=== PATIENT | female | born 1995 | race Caucasian/White ===

== ENCOUNTER → 2020-08-04 | Outpatient (REF) | payer OTHER | LOC: M PLALAB 11:23 | PROVIDERS: ATTEND Obstetrics & Gynecology | DX: Z34.91 Encounter for supervision of normal pregnancy, unspecified, first trimester (principal) ==

== ENCOUNTER → 2020-09-08 | Outpatient (CLI) | payer OTHER | LOC: M LABSMTC 11:36 | PROVIDERS: ATTEND Family Medicine | DX: Z20.828 Contact with and (suspected) exposure to other viral communicable diseases (principal) ==

== ENCOUNTER → 2020-09-29 | Outpatient (CLI) | payer OTHER ==
[2020-09-29 18:25] LABS: HEMATOCRIT 39.5 % (36.0-47.0); HEMOGLOBIN 13.4 g/dl (12.0-15.5); MEAN CORPUSCULAR HEMOGLOBIN 32.6 pg (27.0-33.0); MEAN CORPUSCULAR HGB CONC 33.9 g/dl (32.0-36.5); MEAN CORPUSCULAR VOLUME 96.1 fl (80.0-96.0); PLATELET COUNT, AUTOMATED 289 10^3/uL (150-450); RED BLOOD COUNT 4.11 10^6/uL (4.00-5.40); WHITE BLOOD COUNT 12.8 10^3/uL (4.0-10.0)
[2020-09-29 19:33] LABS: HEPATITIS C VIRUS ABY INDEX < 0.0 INDEX (<0.8); HIV 1&2 SCREEN CENTAUR NEGATIVE (NEGATIVE)
== END ==
LOC: M WHC 15:22
PROVIDERS: ATTEND Obstetrics & Gynecology
DX: Z3A.14 14 weeks gestation of pregnancy (principal)

== ENCOUNTER → 2020-10-30 | Outpatient (CLI) | payer OTHER ==
--- NOTE | 2020-10-31 08:42 | REP ---
INDICATION: ANATOMY COMPARISON: None. TECHNIQUE: Transabdominal obstetrical ultrasound with color Doppler evaluation. FINDINGS: Examination demonstrates a single live intrauterine in cephalic presentation. motion is identified by technologist. Placenta is noted posterior and grade 1 without evidence for placenta previa or abruption. Amniotic fluid volume is normal. Cervix measures 3.1 cm in length and appears closed.. Gestational age by current measurements 20 weeks 3 days with DORITA 03/16/2021. FHR equals 149 beats per minute. BPD: 4.8 cm 20 weeks 4 days HC: 17.9 cm 20 weeks 2 days AC: 15.3 cm 20 weeks 4 days FL: 3.1 cm 19 weeks 5 days HL: 3.2 cm 20 weeks 6 days HC/AC: 1.17 Estimated weight 337 grams (90thpercentile for 19 weeks 2 days gestational age based on DORITA). Anatomical assessment demonstrates normal structures including cranium, choroid plexus, cavum, cerebellum/posterior fossa, facial features, lungs, four-chamber heart/ventricular outflow tracts, diaphragm, stomach, cord insertion/three-vessel cord, kidneys/bladder, spine, and extremities. IMPRESSION: Single live intrauterine in cephalic presentation demonstrating appropriate interval growth. Anatomical assessment is complete and normal. <Electronically signed by Damian Huffman > 10/30/20 [id number]
== END ==
LOC: M WHC 14:34
PROVIDERS: ATTEND Obstetrics & Gynecology
DX: Z36.3 Encounter for antenatal screening for malformations (principal); Z3A.20 20 weeks gestation of pregnancy

== ENCOUNTER → 2020-11-11 | Outpatient (REF) | payer OTHER | LOC: M SFHCWAGY 17:26 | PROVIDERS: ATTEND Advanced Practice Midwife | DX: R35.0 Frequency of micturition (principal) ==

== ENCOUNTER → 2020-12-23 | Outpatient (CLI) | payer OTHER ==
--- NOTE | 2020-12-23 11:45 | REP ---
INDICATION: FLANK PAIN COMPARISON: None TECHNIQUE: Real time funez and color B-mode scale ultrasound examination using curved array transducer. FINDINGS: Kidneys are normal in contour, size, echogenicity, vascularity and reniform shape. No hydronephrosis, nephrolithiasis, cystic or renal mass lesion. Right kidney measures 11.6 x 5.1 x 3.9 cm. Left kidney measures 11.5 x 5.3 x 4.1 cm. Bladder is normal in appearance. IMPRESSION: 1. Normal renal ultrasound. <Electronically signed by Damian Huffman > 12/23/20 0651
== END ==
LOC: M RAD 11:05
PROVIDERS: ATTEND Advanced Practice Midwife
DX: R10.9 Unspecified abdominal pain (principal)

== ENCOUNTER → 2020-12-23 | Outpatient (REF) | payer OTHER ==
[2020-12-23 18:28] LABS: APPEARANCE, URINE HAZY (CLEAR); BACTERIA, URINE AUTO NEGATIVE (NEGATIVE); BILIRUBIN, URINE AUTO NEGATIVE (NEGATIVE); BLOOD, URINE BLOOD NEGATIVE (NEGATIVE); COLOR, URINE YELLOW (YELLOW); GLUCOSE, URINE (UA) AUTO NEGATIVE (NEGATIVE); KETONE, URINE AUTO NEGATIVE (NEGATIVE); LEUKOCYTE ESTERASE, URINE AUTO NEGATIVE (NEGATIVE); MUCUS, URINE SMALL (NEGATIVE); NITRITE, URINE AUTO NEGATIVE (NEGATIVE); PROTEIN, URINE AUTO 1+ mg/dL (NEGATIVE); RBC, URINE AUTO 0 /HPF (0-3); SPECIFIC GRAVITY URINE AUTO 1.019 (1.002-1.035); SQUAMOUS EPITHELIAL CELL UR AU 5 /HPF (0-6); WBC, URINE AUTO 2 /HPF (0-3)
== END ==
LOC: M SFHCWAGY 16:48
PROVIDERS: ATTEND Advanced Practice Midwife
DX: R10.9 Unspecified abdominal pain (principal)

== ENCOUNTER → 2021-01-21 | Outpatient (REF) | payer OTHER ==
[2021-01-21 15:38] LABS: HEMOGLOBIN 10.9 g/dl (12.0-15.5); MEAN CORPUSCULAR HEMOGLOBIN 29.1 pg (27.0-33.0); MEAN CORPUSCULAR HGB CONC 31.1 g/dl (32.0-36.5); MEAN CORPUSCULAR VOLUME 93.3 fl (80.0-96.0); PLATELET COUNT, AUTOMATED 224 10^3/uL (150-450); RED BLOOD COUNT 3.75 10^6/uL (4.00-5.40); WHITE BLOOD COUNT 10.5 10^3/uL (4.0-10.0)
== END ==
LOC: M PLALAB 12:34
PROVIDERS: ATTEND Advanced Practice Midwife
DX: Z36.89 Encounter for other specified antenatal screening (principal); Z3A.24 24 weeks gestation of pregnancy

== ENCOUNTER → 2021-02-04 | Outpatient (CLI) | payer OTHER | LOC: M WHC 16:11 | PROVIDERS: ATTEND Obstetrics & Gynecology | DX: O26.849 Uterine size-date discrepancy, unspecified trimester (principal) ==

== ENCOUNTER → 2021-02-05 | Outpatient (CLI) | payer OTHER ==
--- NOTE | 2021-02-06 07:16 | REP ---
INDICATION: UTERINE SIZE DISCREPANCY,GROWTH COMPARISON: 10/30/2020 TECHNIQUE: Transabdominal obstetrical ultrasound with color Doppler evaluation. FINDINGS: Examination demonstrates a single live intrauterine in cephalic presentation. motion is identified by technologist. Placenta is noted posterior grade 2 and grade without evidence for placenta previa or abruption. Amniotic fluid volume is normal. Cervix measures 3.2 cm in length and appears closed.. Gestational age by LMP and 1st U/S 33 weeks 2 days with DORITA 03/24/2021. Gestational age by current measurements 33 weeks 3 days with DORITA 03/23/2021. FHR equals 149 beats per minute. Estimated weight 2100 grams (34thpercentile). JUAN: 13.8 cm (8.2-24.6) Limited anatomical assessment demonstrates a 9 x 7 x 7 mm cyst adjacent to the left kidney which may warrant evaluation. IMPRESSION: Single live intrauterine in cephalic presentation demonstrating appropriate estimated weight and growth. Small cyst adjacent to the left kidney warrants ultrasound evaluation. <Electronically signed by Damian Huffman > 02/06/21 0738
== END ==
LOC: M WHC 12:09
PROVIDERS: ATTEND Obstetrics & Gynecology
DX: O26.843 Uterine size-date discrepancy, third trimester (principal)

== ENCOUNTER 2021-02-09 21:46 | Outpatient (CLI) | payer OTHER ==
[~2021-02-09] VITALS: Ht 172.7 cm; Wt 56.6 kg
[2021-02-09 22:08] VITALS: BP 102/65
--- NOTE | 2021-02-09 22:28 | IPNPDOC ---
Text Note Date of Service The patient was seen on 02/09/21. NOTE Subjective: Tana is a 25-year-old female who is a with and DORITA of 03/24/21 based of of LMP and consistent with first trimester ultrasound. Her has been complicated by depression and anxiety. She initiated care in her first trimester with [facility]. She presents to L&D after c/o her son jumping from the stairs into her arms and hitting her abdomen. Patient offered to come in to be evaluated at the time if she was concerned. She did decide to come in after having 4 movements in 1 hour and cramping. She reports having cramping over the last few weeks. She denies vaginal bleeding. She reports increased discharge but denies any gushes, soaking through underwear, no vaginal irritation, no vaginal itching, no vaginal odor. Since being in department she reports active movement. Objective: VS, ultrasound and labs: see below. FHR: 140, moderate variability, positive accelerations, no decelerations. TOCO: contractions 2 to 20 minutes-irregular General: Does not appear to be in any distress. Respiratory: Regular rate with no use of accessory muscles. Abdomen: soft and non-tender to touch Assessment: IUP at 33.6 weeks gestation, hit in abdomen, no placental abruption Plan: -continuous EFM -CBC, KB, fibrinogen ordered -clear liquid diet -Ultrasound ordered to evaluate placenta. No major changes in CBC since 01/21/21. Fibrinogen is normal. KB is positive at 0.0045. Ultrasound done showing no abruption. Patient discharged to home with precautions. Next appointment is in 1.5 weeks. Reviewed access to care, kick count, labor signs and danger signs to report. VS,Fishbone, I+O VS, Fishbone, I+O Vital Signs Label Value Date Time Patient Temperature 98.0 degrees F 02/09/212207 Pulse 88 02/09/212207 Respiratory Rate 18 bpm 02/09/212207 Blood Pressure Assessment 102/65 (77) 02/09/212207 Source Automatic Cuff (NIBP) Item Value Date Time White Blood Count 13.6 10^3/uL H 02/09/212224 Red Blood Count 3.88 10^6/uL L 4/19/21 2225 Hemoglobin 10.8 g/dl L 02/09/212224 Hematocrit 34.5 % L 02/09/212224 Mean Corpuscular Volume 88.9 fl 02/09/212224 Mean Corpuscular Hemoglobin 27.8 pg 02/09/212224 Mean Corpuscular Hemoglobin Concent 31.3 g/dl L 02/09/212224 Red Cell Distribution Width 13.3 % 02/09/212224 Platelet Count 236 10^3/uL 02/09/212224 Item Value Date Time Fibrinogen 302 MG/DL 02/09/212224 Result Comment: /Adult Volume of Vials of Rhogam RBC Ratio FMH Indicated 0.0000-0.0045 up to 15 mL 1 0.0046-0.0090 15-30 mL 2 0.0091-0.0135 30-45 mL 3 0.0136-0.0180 45-60 mL 4 0.0181-0.0225 60-75 mL 5 For each ratio interval of 0.0045, one additional vial of Rhogam is indicated. NAME: TANA CELIS DATE OF : 1995 BUSINESS NUMBER: [id number] AGE: 25 SEX: F REPORT #: [id number] ROOM: [facility] TECHNOLOGIST: [facility] DOCTOR: BRENTON CROWDER CNM Ordered for Date&Time: 02/10/2121 cc: [~ rep ct ivnm] Service Date&Time: 02/10/21 0153 EXAMINATION REQUESTED: Obs. Limited, JUAN US REASON FOR PATIENT VISIT: HIT IN THE ABDOMAN REASON FOR EXAMINATION: abdominal trauma-evaluate placenta PROCEDURE INFORMATION: Exam: US , Limited Exam date and time: 02/10/2021 1:53 AM Age: 25 years old Clinical indication: Injury or trauma; Fall; Blunt trauma; Right lower quadrant; Injury date: 02/09/21; Injury details: Attempted to catch 3 yr old son who decided to jump down the stairs and she fell with him landing on her stomach; ; Additional info: Abdominal trauma-evaluate placenta TECHNIQUE: Imaging protocol: Real-time ultrasound of the maternal uterus with image documentation. Exam focused on the clinical indication. COMPARISON: OBS LIMITED US 02/05/2021 12:21 PM FINDINGS: Gestation: Single living intrauterine gestation in cephalic position. Placenta: Posterior right lateral placenta. No placenta previa or abruption. Amniotic fluid index: 8.1 cm. ANATOMICAL SURVEY: Umbilical cord: Three-vessel umbilical cord. Resistive index is 0.5 with SD ratio of 2.1. The umbilical cord overlaps the posterior neck. MATERNAL: Cervix: Cervix is closed measuring 3.4 cm. No funneling is seen. IMPRESSION: 1. Single living intrauterine gestation in cephalic position. 2. heart rate is 173 bpm. motion may affect the measured heart rate. 3. Umbilical cord overlies the posterior neck. This does not appear to extend anterior to the neck but follow-up to exclude nuchal cord is recommended. Electronically signed by: Minh Leach On 02/10/2021 03:31:59 AM BRENTON CROWDER CNM Feb 09, 2021 22:28
[2021-02-09 22:36] LABS: HEMATOCRIT 34.5 % (36.0-47.0); HEMOGLOBIN 10.8 g/dl (12.0-15.5); MEAN CORPUSCULAR HEMOGLOBIN 27.8 pg (27.0-33.0); MEAN CORPUSCULAR HGB CONC 31.3 g/dl (32.0-36.5); MEAN CORPUSCULAR VOLUME 88.9 fl (80.0-96.0); PLATELET COUNT, AUTOMATED 236 10^3/uL (150-450); RED BLOOD COUNT 3.88 10^6/uL (4.00-5.40); WHITE BLOOD COUNT 13.6 10^3/uL (4.0-10.0)
--- NOTE | 2021-02-10 03:31 | REPVR ---
PROCEDURE INFORMATION: Exam: US , Limited Exam date and time: 02/10/2021 1:53 AM Age: 25 years old Clinical indication: Injury or trauma; Fall; Blunt trauma; Right lower quadrant; Injury date: 02/09/21; Injury details: Attempted to catch 3 yr old son who decided to jump down the stairs and she fell with him landing on her stomach; ; Additional info: Abdominal trauma-evaluate placenta TECHNIQUE: Imaging protocol: Real-time ultrasound of the maternal uterus with image documentation. Exam focused on the clinical indication. COMPARISON: OBS LIMITED US 02/05/2021 12:21 PM FINDINGS: Gestation: Single living intrauterine gestation in cephalic position. Placenta: Posterior right lateral placenta. No placenta previa or abruption. Amniotic fluid index: 8.1 cm. ANATOMICAL SURVEY: Umbilical cord: Three-vessel umbilical cord. Resistive index is 0.5 with SD ratio of 2.1. The umbilical cord overlaps the posterior neck. MATERNAL: Cervix: Cervix is closed measuring 3.4 cm. No funneling is seen. IMPRESSION: 1. Single living intrauterine gestation in cephalic position. 2. heart rate is 173 bpm. motion may affect the measured heart rate. 3. Umbilical cord overlies the posterior neck. This does not appear to extend anterior to the neck but follow-up to exclude nuchal cord is recommended. Electronically signed by: Minh Leach On 02/10/2021 03:31:59 AM
== END 2021-02-10 03:25 | disposition home or self-care (01) ==
LOC: M LDO 21:46
PROVIDERS: ATTEND Advanced Practice Midwife
DX: Z03.72 Encounter for suspected placental problem ruled out (principal); Z3A.33 33 weeks gestation of pregnancy
CPT/HCPCS: 36415; 59025; 76815; 76820; 85027; 85384; 85460; G0378; G0463

== ENCOUNTER → 2021-02-18 | Outpatient (REF) | payer OTHER | LOC: M SFHCWAGY 16:53 | PROVIDERS: ATTEND Advanced Practice Midwife | DX: O26.893 Other specified pregnancy related conditions, third trimester (principal) ==

== ENCOUNTER → 2021-02-23 | Outpatient (CLI) | payer OTHER ==
--- NOTE | 2021-02-23 21:36 | REP ---
INDICATION: F/U CYST NEAR KIDNEY - PREG COMPARISON: 02/10/2021 TECHNIQUE: Transabdominal obstetrical ultrasound with color Doppler evaluation. FINDINGS: Examination demonstrates a single live intrauterine in cephalic presentation. motion is identified by technologist. Placenta is noted posterior and grade 2 without evidence for placenta previa or abruption. Amniotic fluid volume is normal. Cervix measures 3.0 cm in length and appears closed.. Gestational age by LMP and 1st ultrasound 35 weeks 6 days with DORITA 03/24/2021. Gestational age by current measurements 36 weeks 2 days with DORITA 03/21/2021. FHR equals 155 beats per minute. JUAN: 10.5 cm Estimated weight 2887 grams (61stpercentile). Umbilical artery 1: 2.07 (1.65-3.52) Umbilical artery 2 SD ratio: 2.46 (1.65-3.52) System left kidney measuring 9 x 7 x 8 mm is again identified. No significant change from prior examination. IMPRESSION: 9 mm cyst on left kidney unchanged. <Electronically signed by Damian Huffman > 02/23/21 [id number]
== END ==
LOC: M WHC 12:51
PROVIDERS: ATTEND Advanced Practice Midwife
DX: N28.1 Cyst of kidney, acquired (principal)

== ENCOUNTER 2021-02-28 22:35 | Outpatient (CLI) | payer OTHER ==
[~2021-02-28] VITALS: Ht 172.7 cm; Wt 58.3 kg
[2021-02-28 22:54] VITALS: BP 119/78
[2021-02-28] MEDS ORDERED: PRENTAB9 PO (22:58)
--- NOTE | 2021-02-28 23:50 | IPNPDOC ---
Text Note Date of Service The patient was seen on 02/28/21. NOTE Labor and Delivery Triage Note: S: 25yo at 36w4d presents with c/o contractions and pelvic pressure. Denies vaginal bleeding or LOF. Reports active movement. O: vss, AF no ctx Cat 1 tracing, irregular contractions Gen: well appearing, NAD Abd: gravid, soft, nttp cx: ft/ closed/-3 A/P: 25yo not in PTL reassuring status -home with PTL precautions and FKCs. -f/u at nxt OB appt Anjana Wilson MD VS,Juancarlos, I+O VS, Juancalros I+O Vital Signs Date Time Temp Pulse Resp B/P (MAP) Pulse Ox O2 Delivery O2 Flow Rate FiO2 02/28/21 22:54 98.6 94 119/78 (92) ANJANA WILSON MD. February 28, 2021 23:50
== END 2021-03-01 00:05 | disposition home or self-care (01) ==
LOC: M LDO 22:35
PROVIDERS: ATTEND Obstetrics & Gynecology
DX: O47.03 False labor before 37 completed weeks of gestation, third trimester (principal); Z3A.36 36 weeks gestation of pregnancy; Z88.8 Allergy status to other drugs, medicaments and biological substances; Z91.013 Allergy to seafood; Z91.030 Bee allergy status
CPT/HCPCS: 59025; G0378; G0463

== ENCOUNTER 2021-03-10 03:19 | Inpatient (IN) | payer OTHER ==
[~2021-03-10] VITALS: Ht 172.7 cm; Wt 58.5 kg
[2021-03-10] VITALS (9 sets, daily range): BP systolic 96–162; BP diastolic 53–79
[~2021-03-10 03:19] MED LIST: PRENTAB9 PO
[2021-03-10] MEDS ORDERED: AMOX500C PO (03:45)
[2021-03-10 04:08] LABS: HEMATOCRIT 35.9 % (36.0-47.0); HEMOGLOBIN 11.1 g/dl (12.0-15.5); MEAN CORPUSCULAR HEMOGLOBIN 26.2 pg (27.0-33.0); MEAN CORPUSCULAR HGB CONC 30.9 g/dl (32.0-36.5); MEAN CORPUSCULAR VOLUME 84.9 fl (80.0-96.0); PLATELET COUNT, AUTOMATED 280 10^3/uL (150-450); RED BLOOD COUNT 4.23 10^6/uL (4.00-5.40); WHITE BLOOD COUNT 14.8 10^3/uL (4.0-10.0)
[2021-03-10] MEDS ORDERED: OXYTOCIN 30 UNITS IN 0.9% NaCl 500ML IV BAG (J2590) As Ordered ONE (04:20)
[2021-03-10] MEDS ORDERED: OXYTOCIN DRIP 30 UNITS in IV 1 EA IV PRN (04:40)
[2021-03-10] MEDS ORDERED: PERCOCET 5MG/325MG TAB PO ONE (04:45)
[2021-03-10] MEDS ORDERED: MEASLES,MUMPS,RUBELLA VACCINE INJ (MMR-II) (90707) SC SCH (04:55)
[2021-03-10] MEDS ORDERED: RHOGAM 300 MCG (1500 IU) INJ (J2790) IM SCH (04:55)
[2021-03-10] MEDS ORDERED: METHYLERGONOVINE MALEATE 0.2 MG TAB PO PRN (04:55)
[2021-03-10] MEDS ORDERED: ANUSOL HC CREAM 30GM TOP PRN (04:55)
[2021-03-10] MEDS ORDERED: DIBUCAINE 1% OINTMENT 30GM TOP PRN (04:55)
--- NOTE | 2021-03-10 04:58 | HPEPDOC ---
Obstetrical History & Physical General Date of Admission March 10, 2021 at 03:37 Primary Care Physician: BRENTON CROWDER CNM History of Present Illness Ana is a 25-year-old female who is a at 38 weeks who presents to L&D with complaints of regular, painful contractions. She initiated care in her first trimester with [facility]. Her has been complicated by multiple psychological disorders, which she is not using medication for. She reprts she also has a history of delivery at 36 weeks. She denies vaginal bleeding or leaking of fluid. Reports active movement. Chief Complaint: Active Labor Information Provided By: Patient Age: 25 : 3 Term: 0 Pre-term: 1 Abortions: 1 Livin Care Care: Good Care Dating Final EDC: Mar 24, 2021 Final EDC by: LMP EGA at Admission: 38 Antepartum Course Diagnos(e)s cyst of left kidney Height (inches): 68 Admission Weight (lbs.): 128 Past Medical History Past Obstetrical History : Date of Delivery: Jan 01, 2018 Type of Delivery: Spontaneous Vaginal Del. Sex of Infant: Male (6 lbs 15 oz) Complications: Yes ( lbor) CLIENT SERVER PROGRAMMER History: Spontaneous (05/07/20) Past Medical History Medical History GI problems depression Anxiety trichotillomania borderline personality disorder Surgical History: Tonsilectomy, Other (tubes in ears) Family History Significant Family History: Diabetes, Heart disease, Lung disease, Other (mental illness) Social History Psychosocial History: Anxiety, Depression, Personality disorder NOS * Smoker: current smoker (vapes) Alcohol: Denies Drugs: denies Allergies Coded Allergies: Cephalosporins (Verified Allergy, Unknown, 02/28/21) bee venom protein (honey bee) (Verified Allergy, Unknown, 02/28/21) shellfish derived (Verified Allergy, Unknown, 02/28/21) diphenhydramine (Verified Adverse Reaction, Unknown, 02/28/21) Medications Scheduled Amoxicillin (Amoxicillin) 500 Mg Capsule, 1 CAP PO TID No.137/Iron/Folic Acd ( Vitamin Tablet) 1 Each Tablet, 1 TAB PO DAILY Physical Examination Physical Examination GENERAL: Alert and oriented times three. BREAST: . ABDOMEN: Gravid and non-tender to touch. FETUS: Is vertex (VTX) by sterile vaginal examination (SVE), fetus is vertex (VTX) by Ronen. LUNGS: Clear to auscultation (CTA). EXTREMITIES: No edema. No clonus. Deep tendon reflexes (DTRs) + 2. Vital Signs/I&O Vital Signs Date Time Temp Pulse Resp B/P (MAP) Pulse Ox O2 Delivery O2 Flow Rate FiO2 03/10/21 04:46 16 03/10/21 04:11 97.7 90 123/79 (94) Laboratory Data 24H LABS Laboratory Tests 2 03/10/21 03:42: Serology Scanned Report Hepatitis B Testing 03/10/21 04:02: Nucleated Red Blood Cells % (auto) 0.0 CBC/BMP Laboratory Tests 03/10/21 04:02 Pertinent Laboratoy Data Blood Type: A+ RBC Antibody Screen: Negative HIV: Negative Hepatitis B: Negative Hepatitis C: Negative Rapid Plasma Reagin: Nonreactive Rubella: Immune Chlamydia/Gonorrhea: Negative Group B Streptococcus: Negative Glucose Tolerance Test: 127 Vaginal Examination Dilation: 5 cm (5-6 cm) Effacement: 90% Station: -2 Cervical Consistency: Soft Cervical Position: Anterior Presentation: Cephalic presentation Position: Vertex (occiput) Assessment Heart Rate (FHR): 135 Variability: Moderate Accelerations: Positive Decelerations: Early Tocometer Contractions: Yes Frequency: regular Assessment/Plan Assessment IUP at 38 weeks gestation active labor Category I FHR tracing GBS negative Plan Admit to L&D. OOB ad fortunato. Diet: clears. Group B Streptococcus (GBS) negative. Labs and intravenous (IV) per unit protocol. Anticipate normal spontaneous delivery () C-S as appropriate. BRENTON CROWDER CNM March 10, 2021 04:58
--- NOTE | 2021-03-10 05:04 | DNPDOC ---
[facility] Delivery Note Delivery Note DATE OF DELIVERY: 03/10/21 at 0425 PREDELIVERY DIAGNOSIS: 38 weeks' gestation and labor. POST DELIVERY DIAGNOSIS: Delivered. PROCEDURE: Spontaneous vaginal delivery. MAINFRAME SYSTEMS ADMINISTRATOR: Brenton Patel CNM, NANCY ANESTHESIA: none. ESTIMATED BLOOD LOSS: 200 mL. FINDINGS: 6 pounds 8 ounce, 2950 grams, male infant, Score 8/9, nuchal cord times 1 loose. DELIVERY SUMMARY: Ana is a 25-year-old female who is now a who presented to L&D in active labor. She progressed to fully dilated at 0422 and pushed to a living male in the OA position with restitution to ROT. A loose nuchal cord was noted. The anterior shoulder delivered with ease and the corpus immediately followed. The baby was placed skin to skin active and crying. The cord was clamped x2 after pulsation ceased and cut by the FOB. A 3-vessel cord was noted. The placenta delivered spontaneously at 0430. Uterine hemostasis was achieved via rapid infusion of IV Pitocin and fundal massage. The vagina, cervix and perineum were inspected and found to be intact. Mom plans to breastfeed him. Both mom and baby are in stable condition. All counts of instruments and sponges are correct. BRENTON PATEL CNM March 10, 2021 05:04
[2021-03-10] MEDS: PRENATAL VITAMINS CHEWABLE TABLET PO SCH (08:45)
[2021-03-10] MEDS: DOCUSATE SODIUM 100MG CAPSULE PO PRN (09:33)
[2021-03-10] MEDS: IBUPROFEN 600MG TAB PO PRN ×2 (09:33→18:06)
[2021-03-10] MEDS: ACETAMINOPHEN TAB 650MG DOSE (2X325MG) PO PRN ×2 (10:30→14:31)
[2021-03-10] MEDS: ACETAMINOPHEN 500 MG TAB PO PRN (20:10)
[2021-03-10] MEDS ORDERED: MORPHINE 4 MG/ML 1ML VIAL/SYRINGE (J2270) SC ONE (20:25)
[2021-03-11] MEDS: IBUPROFEN 800 MG TAB PO PRN ×3 (00:04→17:36)
[2021-03-11] MEDS: ACETAMINOPHEN 500 MG TAB PO PRN ×3 (04:12→20:11)
[2021-03-11 05:55] VITALS: BP 102/65
[2021-03-11] MEDS ORDERED: BOOSTRIX/ADACEL VACCINE (DIPHTH/PERTUSS/ACELL/TETANUS) 0.5ML SYR IM ONE (09:00)
[2021-03-11] MEDS: PRENATAL VITAMINS CHEWABLE TABLET PO SCH (09:00)
--- NOTE | 2021-03-11 09:21 | IPNPDOC ---
Progress Note Date of Service: March 11, 2021 Day#: 1 Progress Note SUBJECT: Patient reporting increase in anxiety and depression. Has had difficult time sleeping and baby has been keeping her awake. She is now interested with consult with psychiatry . OBJECTIVE: VITAL SIGNS: Within normal limits, afebrile. Alert and oriented times three. Abdomen: Fundus firm at U-2. Soft, NTTP. Ext: neg calf tenderness. ASSESSMENT: day #1 status post . Recovering in stable condition. PLAN: 1. Mental health consult 2.Continue routine care Anjana Wilson MD VS, I&O, 24H, Fishbone Vital Signs/I&O Vital Signs Date Time Temp Pulse Resp B/P (MAP) Pulse Ox O2 Delivery O2 Flow Rate FiO2 03/11/21 05:55 97.0 78 17 102/65 (77) 98 Room Air ANJANA WILSON MD. March 11, 2021 09:21
[2021-03-11] MEDS: DOCUSATE SODIUM 100MG CAPSULE PO PRN (17:54)
[2021-03-11 18:00] VITALS: BP 106/66
[2021-03-12] MEDS: IBUPROFEN 800 MG TAB PO PRN ×3 (01:48→21:21)
[2021-03-12] MEDS: ACETAMINOPHEN 500 MG TAB PO PRN ×2 (05:29→15:50)
[2021-03-12 06:18] VITALS: BP 123/72
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
[2021-03-12] MEDS: PRENATAL VITAMINS CHEWABLE TABLET PO SCH (08:56)
[2021-03-12 18:43] VITALS: BP 118/76
[2021-03-12] MEDS: DOCUSATE SODIUM 100MG CAPSULE PO PRN (21:21)
[2021-03-13] MEDS: ACETAMINOPHEN 500 MG TAB PO PRN (00:14)
[2021-03-13 05:53] VITALS: BP 112/61
[2021-03-13] MEDS: PRENATAL VITAMINS CHEWABLE TABLET PO SCH (08:03)
[2021-03-13] MEDS: IBUPROFEN 800 MG TAB PO PRN ×2 (08:05→17:05)
--- NOTE | 2021-03-13 08:59 | IPNPDOC ---
Text Note Date of Service The patient was seen on 03/13/21. NOTE OB PP #3 Reports "everything hurts, I'm exhausted, my breasts are painful, cramping is awful." Pt appears irritated with everything. Breast feeding. Voiding VSS, afebrile,normotensive Upon evaluation, patient had near left breast. Breast shield in place. Infant face pointing down towards abdomen rather than near breast. Milk collection device strongly attached to right breast pulling nipple far into neck of bottle. Left breast still had indentation from where she had previously used the device Nipples appear intact, breasts are filling Fundus firm, NT, down 1 FB Lochia rubra light without odor Perineum intact PP #3 Awaiting recommendations from social work and psych regarding appropriate discharge planning. Reviewed with patient to not adhere collection device so firmly to breast, that she was actually making the breast pain worse. Will consider discharge as recommended. VS,Fishbone, I+O VS, Fishbone, I+O Vital Signs Date Time Temp Pulse Resp B/P (MAP) Pulse Ox O2 Delivery O2 Flow Rate FiO2 03/13/21 05:53 97.4 84 16 112/61 (78) 98 Room Air Celina Lyon CNM March 13, 2021 08:59
[2021-03-13 18:00] VITALS: BP 136/75
== END 2021-03-13 20:00 | disposition home or self-care (01) | DRG 807 ==
LOC: M LDO 03:19 → M LDI 03:37 → M OBS 06:10
PROVIDERS: ADMIT Advanced Practice Midwife; ATTEND Advanced Practice Midwife
PROC: 10E0XZZ Delivery of Products of Conception, External Approach (ICD-10-PCS; principal; 2021-03-10)
DX: O69.81X0 Labor and delivery complicated by cord around neck, without compression, not applicable or unspecified (principal); Z37.0 Single live birth; Z3A.38 38 weeks gestation of pregnancy; O99.344 Other mental disorders complicating childbirth; F32.89 Other specified depressive episodes; F41.8 Other specified anxiety disorders